=== PATIENT | female | born 1995 | race Two or more races ===

== ENCOUNTER 2023-09-17 13:21 | Emergency (ER) | payer OTHER ==
[~2023-09-17] VITALS: Ht 170.2 cm; Wt 84.7 kg
[2023-09-17] MEDS ORDERED: IBUP1TAB5 PO (16:39)
[2023-09-17] MEDS ORDERED: BENZ200C64 PO (16:39)
[2023-09-17] MEDS ORDERED: CEPH500C PO (16:39)
[2023-09-17] MEDS ORDERED: LORA-622 PO (16:39)
[2023-09-17] MEDS ORDERED: ALBUAER3 IN (16:39)
[2023-09-17] MEDS ORDERED: PRED20TA2 PO (16:39)
[2023-09-17] MEDS: ALBUTEROL SULF 2.5 MG/0.5ML(0.5%) NEB SOLN NEB ONE (17:25)
[2023-09-17] MEDS: IPRATROPIUM BROM 0.5 MG/2.5ML INH SOL NEB ONE (17:25)
[2023-09-17] MEDS: guaiFENesin-CODEINE Liq 5 ML UD PO ONE (17:27)
[2023-09-17] MEDS: DexAMETHasone SOD PHOS 10MG/1ML VIAL INJ IV ONE (17:27)
[2023-09-17 18:02] VITALS: BP 126/84; PULSE 98; RESP 18; TEMP 98.1; O2SAT 97
== END 2023-09-17 18:05 | disposition home or self-care (01) ==
LOC: ER 13:21
DX: S63.502A Unspecified sprain of left wrist, initial encounter (principal); J20.9 Acute bronchitis, unspecified; W18.09XA Striking against other object with subsequent fall, initial encounter; Y93.89 Activity, other specified; Y92.89 Other specified places as the place of occurrence of the external cause; Y99.8 Other external cause status
CPT/HCPCS: 29125; 94640; 96374; 99283; J1100; J7644